=== PATIENT | male | born 1970 | race American Indian/Alaskan Native ===

== ENCOUNTER 2016-09-17 11:29 | Emergency (ER) | payer OTHER ==
[2016-09-17 11:43] VITALS: BP 147/95
[2016-09-17] MEDS ORDERED: NORCO 5/325 PO ONE (14:28)
[2016-09-17] MEDS ORDERED: FLEXERIL PO ONE (14:28)
[2016-09-17] MEDS ORDERED: BOOSTRIX IM ONE (14:28)
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
== END 2016-09-17 15:00 | disposition home or self-care (01) ==
LOC: ED 11:29
DX: S00.81XA Abrasion of other part of head, initial encounter (principal); G44.319 Acute post-traumatic headache, not intractable; M79.1 Myalgia; I10 Essential (primary) hypertension; E11.9 Type 2 diabetes mellitus without complications; M19.90 Unspecified osteoarthritis, unspecified site; E78.00 Pure hypercholesterolemia, unspecified; Z87.891 Personal history of nicotine dependence; V49.9XXA Car occupant (driver) (passenger) injured in unspecified traffic accident, initial encounter; W22.11XA Striking against or struck by driver side automobile airbag, initial encounter; Y99.9 Unspecified external cause status; Y93.89 Activity, other specified; Y92.410 Unspecified street and highway as the place of occurrence of the external cause
CPT/HCPCS: 90471; 90715